=== PATIENT | female | born 1950 | race Asian ===

== ENCOUNTER 2018-07-19 08:22 | Inpatient (IN) | payer OTHER, MEDICAID ==
[~2018-07-19] VITALS: Ht 157.5 cm; Wt 59.9 kg
[~2018-07-19 08:22] MED LIST: BUPIVACAINE /PF 0.75% 10 ML VIAL INJ ONE; LR 1,000 ML IV.SOLN IV ONE; MIDAZOLAM HCL 5 MG/5 ML VIAL IVP ONE; ONDANSETRON HCL 4 MG/2 ML VIAL IVP ONE; PROPOFOL 200MG/ 20ML VIAL (DIPRIVAN) IV ONE; SEVOFLURANE 15 MIN GAS INH ONE; ePHEDrine sulfate 50 MG/ML VIAL IVP ONE; fentaNYL CITRATE/PF 100 MCG/2 ML AMP IVP ONE
--- NOTE | 2018-07-19 08:22 | NUR ---
Patient to ER bed 8 to gown for evaluation. Side rails up. Report given to Patricia LEI.
--- NOTE | 2018-07-19 08:30 | NUR ---
Patient presented to ER with knee pain, arrived BLS. Patient A&O, afebrile, skin pink, peripheral pulses present, capillary refill less than 3 sec, tachyneic, respirations equal bilat, pain 9/10. Patient mandarin speaking only. EMT report patient had a fall at home. EKG done upon arrival, patient placed on welder journeyman.
[2018-07-19 08:31] VITALS: BP_SYST 101
--- NOTE | 2018-07-19 08:31 | NUR ---
ER Dr. Howard at bedside examining patient.
[2018-07-19] MEDS ORDERED: MORPHINE 4 MG/ML INJ. SYRINGE IM ONE ×2 (08:45→09:00)
--- NOTE | 2018-07-19 08:45 | NUR ---
Daughter of patient called to bedside. Daughter states the patient had an episode of dizziness and fell, denies head injury, denies KO.
--- NOTE | 2018-07-19 08:46 | NUR ---
Daughter of patient states patient had a stroke 2017, history of diabetes, ambulates with cane at home.
[2018-07-19 09:04] LABS: BASOPHILS # (AUTO) 0.1 K/uL (0.0-0.2); BASOPHILS % (AUTO) 0.8 % (0.0-2.0); EOSINOPHILS # (AUTO) 0.2 K/uL (0.0-0.4); EOSINOPHILS % (AUTO) 2.6 % (0.0-4.0); HEMATOCRIT 37.9 % (36-48); HEMOGLOBIN 12.6 g/dL (12.0-16.0); LYMPHOCYTES # (AUTO) 1.2 K/uL (1.0-5.5); LYMPHOCYTES % (AUTO) 19.1 % (20.5-51.5); MEAN CORPUSCULAR HEMOGLOBIN 29 pg (27-31); MEAN CORPUSCULAR HGB CONC 33 % (32-36); MEAN CORPUSCULAR VOLUME 88 fL (79.0-98.0); MONOCYTES # (AUTO) 0.5 K/uL (0.0-1.0); MONOCYTES % (AUTO) 7.4 % (1.7-9.3); NEUTROPHILS # (AUTO) 4.4 K/uL (1.8-7.7); NEUTROPHILS % (AUTO) 70.1 % (40.0-70.0); PLATELET COUNT (AUTO) 160 K/uL (130-430); RED CELL DISTRIBUTION WIDTH 13.2 % (9.0-15.0); WHITE BLOOD COUNT (AUTO) 6.3 K/uL (4.8-10.8)
[2018-07-19 09:07] LABS: CALCIUM 9.1 mg/dL (8.4-11.0); CREATININE 0.87 mg/dL (0.55-1.30); POTASSIUM 4.2 mmol/L (3.5-5.1)
[2018-07-19 09:11] LABS: PROTHROMBIN TIME 9.9 SECS (9.5-12.5)
[2018-07-19 09:13] LABS: TOTAL BILIRUBIN 0.8 mg/dL (0.0-1.0)
--- NOTE | 2018-07-19 09:15 | NUR ---
Patient to ER bed 8 from Radiology, daughter at bedside. Patient actively vomiting, provided emesis bag.
[2018-07-19] MEDS ORDERED: ONDANSETRON HCL 4 MG/2 ML VIAL IVP ONE (09:30)
[2018-07-19] MEDS ORDERED: MECL12.584 PO (10:09)
[2018-07-19] MEDS ORDERED: TRAM-350 PO (10:09)
[2018-07-19] MEDS ORDERED: PRAM0.253 PO (10:09)
[2018-07-19] MEDS ORDERED: RANI-362 PO (10:09)
[2018-07-19] MEDS ORDERED: LASI20 IVP (10:09)
[2018-07-19] MEDS ORDERED: LIP10 PO (10:09)
[2018-07-19] MEDS ORDERED: AMLO5TAB4 PO (10:09)
[2018-07-19] MEDS ORDERED: LYR50 PO (10:09)
--- NOTE | 2018-07-19 10:15 | NUR ---
Medication reconciliation completed with information provided by Daughter. no prior medication reconciliation on file.
[2018-07-19] MEDS ORDERED: MORPHINE 4 MG/ML INJ. SYRINGE IVP ONE (10:30)
--- NOTE | 2018-07-19 10:37 | NUR ---
ADMISSION NOTE Received patient from ER via crystal, received report from NENA LEI. Patient admitted with diagnosis of SYNCOPE WITH RIGHT FEMUR FRACTURE. Patient oriented to hospital routine, call light, toileting and safety-patient verbalized understanding.
--- NOTE | 2018-07-19 10:40 | NUR ---
Patient will be admitted to care of Dr. Downey. Admitted to Tele unit. Will go to room 121A. Belongings list completed. Summary report printed. Report given at bedside Luiz LEI. Transfer to via ACLS protocol. Licensed nurse present. IV present no signs or symptoms of infiltration.
--- NOTE | 2018-07-19 10:41 | NUR ---
CONSULTATION PAGED REASON FOR CONSULTATION:FEMUR FRACTURE WAS CONSULT CALLED?Y PERSON WHO WAS NOTIFIED:JERROD CONSULTING PHYSICIAN:YEMI GUAMAN (ANA VERONICA [employer] FARM MANAGER) BONDACTOR MACHINE OPERATOR SPECIALTY:ORTHO BONDACTOR MACHINE OPERATOR PHONE NUMBER:[phone] REQUESTING PHYSICIAN:TANNER BERUMEN
--- NOTE | 2018-07-19 10:47 | NUR ---
PAGED PAGED TANNER BERUMEN AT [phone] SPOKE WITH LFACO.
[2018-07-19 10:58] VITALS: BP_SYST 124
[2018-07-19] MEDS ORDERED: MORPHINE 2 MG/ML INJ. SYRINGE IVP PRN (11:00)
[2018-07-19] MEDS ORDERED: ONDANSETRON HCL 4 MG/2 ML VIAL IVP PRN (11:00)
[2018-07-19] MEDS ORDERED: LORazepam 2 MG/ML VIAL IVP PRN (11:00)
--- NOTE | 2018-07-19 11:03 | NUR ---
CONSULTATION PAGED REASON FOR CONSULTATION:SYNCOPE WAS CONSULT CALLED?Y PERSON WHO WAS NOTIFIED:PORTER CONSULTING PHYSICIAN:MEENAKSHI BARRON GYPSUM BLOCK SETTER SPECIALTY:CARDIO GYPSUM BLOCK SETTER PHONE NUMBER:[phone] REQUESTING PHYSICIAN:TANNER BERUMEN
--- NOTE | 2018-07-19 11:15 | NUR ---
TRANSFER TO [facility]: Received patient from ER, patient placed in [facility] bed 121A, connected to tele monitor, patient tolerated well with minimal discomfort. Received SBAR report and plan of care from ER nurse Gianna.
[2018-07-19 12:00] VITALS: BP_SYST 124
[2018-07-19] MEDS: D5/0.45 NS 1,000 ML IV SCH ×2 (12:15→20:41)
--- NOTE | 2018-07-19 13:00 | NUR ---
RN ROUNDS: Patient resting in bed, daughter is at bedside, denies pain, denies SOB. Breathing is even and unlabored, no signs of distress noted. 22GA Peripheral IV to RT AC is patent, flushed well, dressing is clean dry and intact, infusion pump connected and running. O2 NC is in place with O2 running at 2LPM. Pain to RT lower extremity is tolerable at this time. Sensation to RT lower extremity is intact, pulses palpable. Bed is locked and in lowest position, call light is within reach, will continue to monitor.
[2018-07-19] MEDS: MORPHINE 4 MG/ML INJ. SYRINGE IVP PRN ×2 (14:32→20:42)
--- NOTE | 2018-07-19 15:00 | NUR ---
RN ROUNDS: Patient resting in bed. Patient medicated for pain to RT lower extremity. Breathing is even and unlabored, no signs of distress noted. Call light is within reach, bed is locked in lowest position.
--- NOTE | 2018-07-19 15:29 | NUR ---
CLAY CATH: # 16 FR Clay catheter with 10 cc bulb inserted with use of sterile technique. Bulb inflated with 10 cc sterile water. Immediate return of 200 cc dean urine noted. Bedside drainage bag placed below level of bladder. Pt tolerated procedure well with minimal discomfort.
[2018-07-19 16:33] VITALS: BP_SYST 127
--- NOTE | 2018-07-19 17:00 | NUR ---
RN ROUNDS: Patient remains alert and oriented, verbal and appropriately responsive. Patient speaks Mandarin only, daughter is at bedside to help translate and comfort patient. Patient is resting comfortably at this time, PRN pain med given earlier and patient verbalizes that it is helping keep pain manageable. Peripheral 22GA IV to RT AC is patent, flushed well, dressing is clean dry and intact with infusion pump running IVF. Riggs is intact, secured and freely flowing to gravity with no kinks in line, dean color urine noted. Patient is showing no signs of distress, call light is within reach, bed is locked in lowest position, will continue to monitor.
[2018-07-19 18:50] LABS: BILIRUBIN,URINE NEGATIVE (NEGATIVE); BLOOD, URINE 2+ (NEGATIVE); CLARITY/URINE CLEAR (CLEAR); COLOR,URINE AMBER (YELLOW); GLUCOSE,URINE TRACE (NEGATIVE); KETONES,URINE NEGATIVE (NEGATIVE); LEUKOCYTE ESTERASE ,URINE NEGATIVE (NEGATIVE); NITRITE, URINE NEGATIVE (NEGATIVE); PROTEIN URINE 1+ (NEGATIVE); UROBILINOGEN,URINE 0.2 (0.2-1.0)
[2018-07-19 18:57] LABS: BACTERIA,URINE FEW /HPF (None Seen); HYALINE CASTS, URINE 0-10 /LPF (None Seen); MUCUS,URINE None Seen /LPF (None Seen); RBC,URINE 0-3 /HPF (0-3); WBC,URINE 0-3 /HPF (0-3)
--- NOTE | 2018-07-19 19:10 | NUR ---
CLOSING NOTE: Patient remains AAOx4, continues to answer questions appropriately. No signs of distress noted, breathing is even and unlabored. Patient denies pain, denies SOB. Daughter is at bedside. Call light is within reach, bed is locked in lowest position, will continue to monitor until endorsed to mine shifter RN
--- NOTE | 2018-07-19 19:15 | NUR ---
OPENING NOTES Bedside report received from dayshift nurse. Patient received lying in bed, awake and alert. No s/s of acute distress noted. Breathing is even and unlabored. Nasal canula attached, on 2L of oxygen. HOB slightly raised. Patient's daughter is at bedside, assisting with translation. IV site patent, IVF infusing well, no signs of infiltration or infection noted. Riggs attached, secured, and draining by gravity. Three side rails up. Bed alarm on. Bed is locked and at lowest position. Call light with patient. Will continue to monitor.
--- NOTE | 2018-07-19 19:32 | NUR ---
ENDORSEMENT: Gave bedside SBAR report and endorsed plan of care to night DO Pereira
[2018-07-19 20:00] VITALS: BP_SYST 138
--- NOTE | 2018-07-19 20:42 | NUR ---
PAIN Patient complained of pain. PRN medication to be administered. Will continue to monitor and reassess.
--- NOTE | 2018-07-19 22:30 | NUR ---
ROUNDS Patient in bed sleeping at this time. No s/s of acute distress noted. Breathing even and unlabored. IVF infusing well. Call light with patient. Bed alarm on. Will continue to monitor.
--- NOTE | 2018-07-20 00:30 | NUR ---
ROUNDS Patient asleep at this time. No signs of discomfort noted. Chest rise and fall even bilaterally. IVF infusing well. Call light with patient. Bed alarm on. Will continue to monitor.
[2018-07-20 00:49] VITALS: BP_SYST 124
--- NOTE | 2018-07-20 03:00 | NUR ---
ROUNDS Patient sleeping comfortably at this time. No s/s of acute distress noted. Breathing even and unlabored. IVF infusing well. Call light with patient. Bed alarm on. Will continue to monitor.
--- NOTE | 2018-07-20 05:00 | NUR ---
ROUNDS/PERICARE Patient in bed receiving amber care from HOUSEHOLD APPLIANCES SERVICE TECHNICIAN. Patient tolerating activity well. No signs of discomfort noted. Chest rise and fall even bilaterally. Call light with patient. Bed alarm on. Will continue to monitor.
[2018-07-20] MEDS: D5/0.45 NS 1,000 ML IV SCH ×2 (05:08→17:55)
--- NOTE | 2018-07-20 06:40 | NUR ---
CLOSING NOTES Patient in bed, eyes closed, appears to be asleep at this time. No s/s of acute distress noted. Breathing even and unlabored. Nasal canula attached properly, on 2L of oxygen. HOB raised. IVF infusing well, IV site patent, no signs of infiltration or infection noted. Riggs attached, secured, and draining by gravity. All needs met throughout shift. Fall and safety precautions maintained throughout shift. Will continue to monitor until patient care is endorsed to oncoming dayshift nurse.
[2018-07-20 07:00] VITALS: BP_SYST 136
[2018-07-20 07:04] LABS: CALCIUM 8.1 mg/dL (8.4-11.0); CREATININE 0.89 mg/dL (0.55-1.30); POTASSIUM 4.5 mmol/L (3.5-5.1)
[2018-07-20 07:09] LABS: BASOPHILS % (AUTO) 0.1 % (0.0-2.0); EOSINOPHILS # (AUTO) 0.2 K/uL (0.0-0.4); EOSINOPHILS % (AUTO) 2.9 % (0.0-4.0); HEMATOCRIT 27.7 % (36-48); HEMOGLOBIN 9.3 g/dL (12.0-16.0); LYMPHOCYTES # (AUTO) 0.6 K/uL (1.0-5.5); LYMPHOCYTES % (AUTO) 7.4 % (20.5-51.5); MEAN CORPUSCULAR HEMOGLOBIN 30 pg (27-31); MEAN CORPUSCULAR HGB CONC 34 % (32-36); MEAN CORPUSCULAR VOLUME 88 fL (79.0-98.0); MONOCYTES # (AUTO) 0.5 K/uL (0.0-1.0); MONOCYTES % (AUTO) 6.4 % (1.7-9.3); NEUTROPHILS % (AUTO) 83.2 % (40.0-70.0); PLATELET COUNT (AUTO) 108 K/uL (130-430); RED BLOOD CELL COUNT(AUTO) 3.14 MIL/uL (4.2-6.2); RED CELL DISTRIBUTION WIDTH 13.3 % (9.0-15.0)
[2018-07-20 07:12] LABS: PHOSPHORUS 3.2 mg/dL (2.7-4.5)
--- NOTE | 2018-07-20 07:25 | NUR ---
TO OR Pt left floor via bed to OR in no distress. Pt's daughter Pratima at bedside.
[2018-07-20 07:32] LABS: WHITE BLOOD COUNT (AUTO) 8.4 K/uL (4.8-10.8)
[2018-07-20] MEDS ORDERED: POLYMYXIN 500,000/BACIT.10,000 UNITS in NS IRR 1 L IR ONE (07:39)
--- NOTE | 2018-07-20 09:01 | NUR ---
Nutrition Update Chinmay Scale 15 noted. Pt admitted for syncope, R femur fracture. Diet: NPO BMI: 24.1 kg/m2 RD to follow per nutrition care standards.
--- NOTE | 2018-07-20 09:41 | NUR ---
CONSULT PULMONOLOGY PNEUMONIA/ PULMONARY NODULE DR MORATAYA [phone] [address] MIC[address] TECH[address] MICHELLE IS ROUNDING AND WAS INFORMED OF CONSULT
--- NOTE | 2018-07-20 10:12 | NUR ---
CONSULT ID PNEUMONIA DR BROTHERS [phone] S/W ANAIS GOLDSTEIN
[2018-07-20] MEDS ORDERED: LR 1,000 ML IV SCH (10:33)
[2018-07-20] MEDS ORDERED: METOCLOPRAMIDE HCL 10 MG/2 ML VIAL IVP PRN (10:45)
[2018-07-20] MEDS ORDERED: MORPHINE 4 MG/ML INJ. SYRINGE IVP PRN ×3 (10:45)
[2018-07-20] MEDS: CEFAZOLIN 1 GM IVPB PREMIX 50 ML IV SCH ×2 (11:00→17:45)
[2018-07-20] MEDS ORDERED: MEPERIDINE HCL/PF 100 MG/ML AMP IM PRN (11:00)
[2018-07-20] MEDS ORDERED: ONDANSETRON HCL 4 MG/2 ML VIAL IVP PRN (11:00)
[2018-07-20] MEDS ORDERED: PROMETHAZINE INJ.Non-Formulary 25 MG/ML AMP IVP PRN (11:00)
[2018-07-20] MEDS ORDERED: DIPHENHYDRAMINE HCL 25 MG CAPSULE PO PRN (11:00)
[2018-07-20] MEDS ORDERED: HYDROcodone/ACETAMIN 5-325 MG TAB (NORCO/ VICODIN) PO PRN (11:00)
[2018-07-20] MEDS ORDERED: SENNOSIDES 8.6 MG TABLET PO PRN (11:00)
[2018-07-20] MEDS ORDERED: MECLIZINE HCL 25 MG TABLET (ANITVERT) PO PRN (11:15)
[2018-07-20] MEDS ORDERED: MORPHINE 4 MG/ML INJ. SYRINGE ONE (11:28)
--- NOTE | 2018-07-20 12:10 | NUR ---
Post operative notes From PACU after ORIF of right femur under spinal anesthesia with mac sedation, on endorsement patient awake but drowsy , vitals signed monitored , dressing x2 right leg dry/intact kept with cold pack, mild pain/sensation BLE extremities, feeling weak , warm to touch, safety/fall precaution initiated, will monitor.
[2018-07-20 12:15] VITALS: BP_SYST 128
[2018-07-20] MEDS ORDERED: AZITHROMYCIN 500 MG in NS 250 ML IV SCH (12:30)
[2018-07-20] MEDS ORDERED: CEFAZOLIN 1 GM IVPB PREMIX 50 ML IV ONE (12:45)
[2018-07-20] MEDS: cefTRIAXone 1 GM in D5W 50 ML IV SCH (13:23)
[2018-07-20] MEDS: INSULIN REGULAR, HUMAN 100 UNITS/ML, 10 ML VIAL (novoLIN R) SUBCUT PRN ×3 (13:27→21:11)
--- NOTE | 2018-07-20 14:40 | NUR ---
ROUNDS Pt resting quietly in bed with no s/s resp distress, no c/o pain or discomfort. Pt drank small amount of warm water. All precautions remain in place. Call light within reach.
--- NOTE | 2018-07-20 16:23 | NUR ---
ROUNDS Pt resting quietly in bed with no s/s resp distress, no c/o pain or discomfort. Fresh ice placed to pt's right leg incision sites. All precautions remain in place. Call light within reach.
[2018-07-20] MEDS: PREGABALIN 25 MG CAPSULE (LYRICA) PO SCH ×2 (16:39→21:05)
[2018-07-20 16:44] VITALS: BP_SYST 112
--- NOTE | 2018-07-20 18:16 | NUR ---
CLOSING NOTE Pt resting quietly in bed with no s/s resp distress, no c/o pain or discomfort. Taking only sips of warm water at this time. IVF infusing well to LFA at ordered rate with no s/s infiltration to site. HOB elevated for aspiration precautions. Needs met, call light within reach.
--- NOTE | 2018-07-20 19:15 | NUR ---
Opening Note Received bedside report with patient laying supine. Alert and able to verbalize her needs. Patient is Mandarin speaking only. Patient is placed on bedrest with bed alarm active. S/P fall and S/P ORIF of the right leg. Lateral upper thigh dressing CDI and lateral lower leg dressing CDI. Patient does not have any pain at this time or respiratory distress. On 2L NC and tolerating well. Oriented the patient to the room and use of the call light. Will monitor patient for any change in condition. Safety precautions being observed and call light within reach.
--- NOTE | 2018-07-20 19:16 | NUR ---
Educated incentive spirometer with patient and daughter (Pratima) at bedside. Instructed on use and outcome. Patient did one on one teachback with IS. No questions from patient of daughter.
[2018-07-20] MEDS: PRAMIPEXOLE DI-HCL 0.25 MG TABLET PO SCH (21:04)
[2018-07-20] MEDS: FERROUS SULFATE 325 MG TABLET.DR PO SCH (21:04)
[2018-07-20] MEDS: DOCUSATE SODIUM 100 MG CAPSULE PO SCH (21:04)
[2018-07-20] MEDS: FAMOTIDINE 20 MG TABLET PO SCH (21:04)
--- NOTE | 2018-07-20 22:05 | NUR ---
Daughter at bedside. Patient taken PO meds and tolerated well. No pain or respiratory distress at this time. Cont on 2L NC. Call light within reach. Bed locked in low position and bed alarm is active. Riggs catheter draining by gravity.
[2018-07-21] MEDS: MORPHINE 4 MG/ML INJ. SYRINGE IVP PRN (00:12)
[2018-07-21 00:24] VITALS: BP_SYST 111
--- NOTE | 2018-07-21 00:30 | NUR ---
Repositioned patient, and leg. Ask if patient had pain, and medicated with morphine 4mg for pain of 7/10. Patient stated she was warm. Removed a few layers of blankets.
--- NOTE | 2018-07-21 02:10 | NUR ---
Patient in bed resting. No apparent sign of pain or respiratory distress. Will cont to monitor.
[2018-07-21] MEDS: D5/0.45 NS 1,000 ML IV SCH (03:05)
--- NOTE | 2018-07-21 03:29 | NUR ---
200ml Output from Riggs Catheter. Kacey color, clear.
--- NOTE | 2018-07-21 04:23 | NUR ---
Patient resting in bed with no change in current condition. Will cont to monitor. No pain or sob noted.
[2018-07-21] MEDS: INSULIN REGULAR, HUMAN 100 UNITS/ML, 10 ML VIAL (novoLIN R) SUBCUT PRN ×4 (06:09→21:25)
[2018-07-21 06:10] LABS: BASOPHILS % (AUTO) 0.1 % (0.0-2.0); EOSINOPHILS % (AUTO) 0.3 % (0.0-4.0); LYMPHOCYTES # (AUTO) 0.7 K/uL (1.0-5.5); LYMPHOCYTES % (AUTO) 8.3 % (20.5-51.5); MEAN CORPUSCULAR HEMOGLOBIN 30 pg (27-31); MEAN CORPUSCULAR HGB CONC 34 % (32-36); MEAN CORPUSCULAR VOLUME 88 fL (79.0-98.0); MONOCYTES # (AUTO) 0.8 K/uL (0.0-1.0); MONOCYTES % (AUTO) 9.4 % (1.7-9.3); NEUTROPHILS # (AUTO) 6.6 K/uL (1.8-7.7); PLATELET COUNT (AUTO) 92 K/uL (130-430); RED CELL DISTRIBUTION WIDTH 12.9 % (9.0-15.0)
[2018-07-21 06:34] LABS: ALBUMIN 1.6 g/dL (3.4-4.8); C-REACTIVE PROTEIN QUANT 8.4 mg/dL (0-0.5); CALCIUM 7.3 mg/dL (8.4-11.0); CREATININE 0.57 mg/dL (0.55-1.30); POTASSIUM 4.2 mmol/L (3.5-5.1); TOTAL BILIRUBIN 0.7 mg/dL (0.0-1.0)
--- NOTE | 2018-07-21 06:58 | NUR ---
Closing Notes Patient in bed resting. Compression stockings applied. Bed alarm is active, low and locked. no complaints of pain or respiratory distress. All needs have been met and will endorse care to oncoming shift.
--- NOTE | 2018-07-21 07:55 | NUR ---
INITIAL NOTE RECEIVED PT IN BED, NO S/S OF DISTRESS OR SOB NOTED, PT HAS NO C/O PAIN AT THIS TIME, PT IN STABLE CONDITION, PT AAOX3, VERBAL BUT SPEAKS MANDARIN, DAUGHTER AT BEDSIDE TO TRANSLATE. PT ON OXYGEN 2 LITERS VIA NASAL CANNULA, SATURATION 100%. PT HAS A DRESSING ON RIGHT HIP, NOTED OLD BLOOD, PT HAS TWO IV CATHETER'S PATENT, FLUSH AND NO SIGNS OF INFECTION OR INFILTRATION NOTED. PT HAS A F/C DRAINING VIA GRAVITY. EDUCATED PT ON USE OF INCENTIVE SPIROMETER, PT TO USE 10 TIMES AN HOUR WHILE AWAKE, PT VERBALIZED UNDERSTANDING, PT AT 500ML, WITH HELP OF DAUGHTER. PT ABLE TO MOVE TOES ON RIGHT FOOT, SENSATION PRESENT, CAPILLARY REFILL LESS THAN 3 SECONDS, PULSE PALPABLE, NO PARALYSIS OR TINGLING PER PT. PT HAS A SPLINT ON RIGHT ARM, PULSE PALPABLE, SENSATION PRESENT, CAPILLARY REFILL LESS THAN 3 SECONDS, NO PARALYSIS OR TINGLING PT PER, ABLE TO WIGGLE FINGERS. PT HAS BILATERAL SCD'S IN PLACE. BED AT LOWEST POSITION, CALL LIGHT WITHIN REACH, WILL CONTINUE TO MONITOR PT FOR ANY CHANGES, FALL AND SAFETY PRECAUTIONS IN PLACE.
--- NOTE | 2018-07-21 08:05 | NUR ---
PAGED PAGED TANNER BERUMEN AT [phone] SPOKE WITH JOLIE.
[2018-07-21 08:10] LABS: RED BLOOD CELL COUNT(AUTO) 1.94 MIL/uL (4.2-6.2)
[2018-07-21 08:11] LABS: HEMATOCRIT 17.1 % (36-48); HEMOGLOBIN 5.8 g/dL (12.0-16.0)
[2018-07-21 08:30] VITALS: BP_SYST 131
--- NOTE | 2018-07-21 08:42 | NUR ---
PAGED PAGED ANA VERONICA AT [phone] SPOKE WITH ELVI.
[2018-07-21] MEDS: DOCUSATE SODIUM 100 MG CAPSULE PO SCH ×2 (08:44→21:16)
[2018-07-21] MEDS: PREGABALIN 25 MG CAPSULE (LYRICA) PO SCH ×4 (08:44→21:17)
[2018-07-21] MEDS: FERROUS SULFATE 325 MG TABLET.DR PO SCH ×2 (08:44→21:16)
[2018-07-21] MEDS: amLODIPine BESYLATE 5 MG TABLET PO SCH (08:45)
[2018-07-21] MEDS: FUROSEMIDE 20 MG/2 ML VIAL IVP SCH (08:45)
[2018-07-21] MEDS ORDERED: ENOXAPARIN SODIUM 40 MG/0.4 ML SYRINGE SUBCUT SCH (09:00)
[2018-07-21] MEDS ORDERED: ATORVASTATIN 10 MG TABLET PO SCH (09:00)
[2018-07-21] MEDS ORDERED: NACL 0.9% 1,000 ML IV SCH (09:00)
--- NOTE | 2018-07-21 09:11 | NUR ---
PAGED PAGED ANA VERONICA AT [phone] SPOKE WITH TRUMAN.
--- NOTE | 2018-07-21 09:25 | NUR ---
PAGED PAGED TANNER BERUMEN AT [phone] SPOKE WITH FREDIS.
--- NOTE | 2018-07-21 09:30 | NUR ---
ROUNDS DR MIGUEL ANGEL MEDINA, CLARIFIED WITH ABOUT ORDERING 2 UNITS OF PRBC'S. PER MD SHE GAVE AN ORDER TO TRANSFUSE 2 UNITS TODAY AND CANCEL THE ORDER FOR AUTOLOGOUS BLOOD.
--- NOTE | 2018-07-21 09:33 | NUR ---
2ND PAGE OUT TO PAGED ANA VERONICA AT [phone] SPOKE WITH TRUMAN.
[2018-07-21 09:44] LABS: ERYTHROCYTE SEDIMENTATION RATE 36 MM/HR (0-20)
--- NOTE | 2018-07-21 09:45 | NUR ---
BT INITIATION: Consent signed per daughter agreeing to administration of blood. Blood has been type and crossmatched. Blood sent from blood bank. Information on unit of blood checked against patient wristband at bedside by two nurses. All information matches. Patient or responsible republican informed of potential complications associated with blood transfusion. Informed of possible transfusion reaction symptoms. Aware of need to notify nurse at once of itching, shortness of breath, flushing, feeling of impending doom, or other symptoms not previously present. Vital signs taken within 5 minutes prior to initiation of transfusion. RN will remain with patient for first 15 minutes of transfusion at which time vital signs will be re-assessed. VSS, 98.6, 79, 18, 114/47, saturation 100% 2 liter via nasal cannula.
--- NOTE | 2018-07-21 09:46 | NUR ---
MD CALL DR ASHLEIGH PORTILLO, MADE AWARE THAT PATIENT'S DRESSING THE DRESSING ON HER RIGHT HIP BLEEDING AT THE TOP, NOTED TO BE SLIGHT OOZING AND WET WHEN TOUCHED, NOTED BRIGHT RED BLOOD, NOTED THAT THE VINCE WAS WET WITH OLD BLOOD, PER MD TO REINFORCE DRESSING FOR NOW AND HE WILL COME AND SEE THE PT.
--- NOTE | 2018-07-21 10:00 | NUR ---
FIFTEEN MINUTES AFTER BLOOD TRANSFUSION STARTED PT IN STABLE CONDITION, NO S/S OF DISTRESS OR SOB NOTED, PT HAS NO C/O PAIN AT THIS TIME, PT RESTING COMFORTABLY, VSS, 122/51, 18, 78, 98.6, SATURATION OF 100% ON 2 LITERS VIA NASAL CANNULA.
--- NOTE | 2018-07-21 10:04 | NUR ---
ROUNDS PT IN BED, NO S/S OF DISTRESS OR SOB NOTED, PT HAS NO C/O PAIN AT THIS TIME, PT IN STABLE CONDITION, PT RESTING COMFORTABLY, WILL CONTINUE TO MONITOR PT FOR ANY CHANGES.
[2018-07-21 10:16] LABS: NEUTROPHILS % (AUTO) 81.9 % (40.0-70.0)
[2018-07-21] MEDS: NACL 0.9% 1,000 ML IV SCH (10:18)
[2018-07-21] MEDS: HYDROcodone/ACETAMIN 7.5-325 MG TAB PO PRN (10:47)
--- NOTE | 2018-07-21 11:30 | NUR ---
MD ROUNDS DR ASHLEIGH MEDINA, AWARE OF PATIENT'S CONDITION, MD CAME TO SEE PT DUE TO OOZING FROM RIGHT HIP, PER MD HE STATED IT WAS FINE AND TO REINFORCE NEEDED.
--- NOTE | 2018-07-21 12:07 | NUR ---
ROUNDS PT IN BED, NO S/S OF DISTRESS OR SOB NOTED, PT HAS NO C/O PAIN AT THIS TIME, PT IN STABLE CONDITION. PT RESTING COMFORTABLY, WILL CONTINUE TO MONITOR PT FOR ANY CHANGES.
--- NOTE | 2018-07-21 12:45 | NUR ---
BLOOD TRANSFUSION ENDED NO REACTION NOTED, PT IN STABLE CONDITION, NO S/S OF DISTRESS OR SOB NOTED, PT HAS NO C/O PAIN AT THIS TIME, PT IN STABLE CONDITION, VSS, 99% 1 LITER VIA NASAL CANNULA, 72, 98.6, 126/56.
[2018-07-21 12:49] VITALS: BP_SYST 125
[2018-07-21] MEDS: cefTRIAXone 1 GM in D5W 50 ML IV SCH (12:49)
--- NOTE | 2018-07-21 13:42 | NUR ---
PHYSICAL THERAPY EVALUATION WILL BE PERFORMED TOMORROW DUE TO THE PATIENT HAVING LOW HGB AND HAVING TRANSFUSIONS. PLAN: ATTEMPT TOMORROW.
--- NOTE | 2018-07-21 15:06 | NUR ---
CHRISTOPHER PLANNING Received call from dtr Pratima that spoke w PCP & wants pt to go to [facility]. States will go look @ facility today & if does not like it will let us know. Updated christopher Huffman planner/scheduler.
[2018-07-21 16:44] VITALS: BP_SYST 131
--- NOTE | 2018-07-21 17:30 | NUR ---
SPLINT MISSING SPLINT FOR RIGHT ARM IS MISSING, UNABLE TO FIND IT, PRESUMED THAT DAUGHTER TOOK IT HOME, WILL ASK HER WHEN SHE COMES BACK, CHARGE NURSE AWARE.
--- NOTE | 2018-07-21 17:40 | NUR ---
BT INITIATION: Consent signed per daughter agreeing to administration of blood. Blood has been type and crossmatched. Blood sent from blood bank. Information on unit of blood checked against patient wristband at bedside by two nurses. All information matches. Patient or responsible republican informed of potential complications associated with blood transfusion. Informed of possible transfusion reaction symptoms. Aware of need to notify nurse at once of itching, shortness of breath, flushing, feeling of impending doom, or other symptoms not previously present. Vital signs taken within 5 minutes prior to initiation of transfusion. RN will remain with patient for first 15 minutes of transfusion at which time vital signs will be re-assessed. VSS, 98.6, 77, 18, 116/54, saturation 100% 1 liter via nasal cannula.
--- NOTE | 2018-07-21 17:55 | NUR ---
FIFTEEN MINUTES AFTER BLOOD TRANSFUSION STARTED PT IN STABLE CONDITION, NO S/S OF DISTRESS OR SOB NOTED, PT HAS NO C/O PAIN AT THIS TIME, PT RESTING COMFORTABLY, VSS, 110/56, 18, 78, 98.6, SATURATION OF 100% ON 1 LITERS VIA NASAL CANNULA.
--- NOTE | 2018-07-21 18:18 | NUR ---
CLOSING NOTE PT IN BED, NO S/S OF DISTRESS OR SOB NOTED, PT HAS NO C/O PAIN AT THIS TIME, PT IN STABLE CONDITION, PT AAOX3, VERBAL BUT SPEAKS MANDARIN. PT ON OXYGEN 1 LITERS VIA NASAL CANNULA, SATURATION 100%. PT HAS A DRESSING ON RIGHT HIP, NOTED OLD BLOOD ON IT, NO MORE OOZING NOTED, PT HAS TWO IV CATHETER'S PATENT, FLUSH AND NO SIGNS OF INFECTION OR INFILTRATION NOTED. RUNNING BLOOD ORDERED. PT HAS A F/C DRAINING VIA GRAVITY. EDUCATED PT ON USE OF INCENTIVE SPIROMETER, PT AT 500ML. PT ABLE TO MOVE TOES ON RIGHT FOOT, SENSATION PRESENT, CAPILLARY REFILL LESS THAN 3 SECONDS, PULSE PALPABLE, NO PARALYSIS OR TINGLING PER PT. PT NO LONGER HAS A SPLINT ON RIGHT ARM, PULSE PALPABLE, SENSATION PRESENT, CAPILLARY REFILL LESS THAN 3 SECONDS, NO PARALYSIS OR TINGLING PT PER, ABLE TO WIGGLE FINGERS. PT HAS BILATERAL SCD'S IN PLACE. BED AT LOWEST POSITION, CALL LIGHT WITHIN REACH, WILL ENDORSE CARE OF PT TO INCOMING NURSE, FALL AND SAFETY PRECAUTIONS IN PLACE.
--- NOTE | 2018-07-21 19:30 | NUR ---
Pt was received lying in bed fully awake, alert and oriented x 4. Pt is Mandarin speaking, but speaks and understands some [place]. PRBC transfusion is in progress in left hand and no transfusion reaction noted. IV sites in left hand and RAC are without any sign of infiltration. Rt hip dressing noted with old blood stain. neurovascular checks to RUE and RLE are WNL. Pt is able to wiggle her fingers and toes. Pt was instructed to use IS 10x Q 1hr WA and pt verbalized understanding. Riggs cath is patent with yellowish urine. Skin is warm and dry to touch. No signs or symptoms of hypoglycemia or hyperglycemia noted. Call light is with pt and bed alrm is on. Pt was instructed to call for assistance as needed and pt verbalized understanding.
[2018-07-21 20:00] VITALS: BP_SYST 121
--- NOTE | 2018-07-21 20:15 | NUR ---
PRBC transfusion completed and no transfusion reaction noted. VSS. IVF of NS resumed at 70ml/hr.
[2018-07-21] MEDS: PRAMIPEXOLE DI-HCL 0.25 MG TABLET PO SCH (21:16)
[2018-07-21] MEDS: FAMOTIDINE 20 MG TABLET PO SCH (21:16)
[2018-07-21] MEDS: metroNIDAZOLE 500 mg/NS 100 ML IV SCH (21:16)
--- NOTE | 2018-07-21 21:25 | NUR ---
Accucheck 258 and 6 units Regular Insulin given SQ. Skin remains warm and dry to touch. Pt was offered HS snacks, but pt declined.
--- NOTE | 2018-07-22 | NUR ---
Pt is resting without any distress noted. Neurovascular checks to RUE and RLE are WNL. Rt hip dressing intact with old blood stain. IVF is infusing well in left hand. Call light is with pt and bed alarm is on.
[2018-07-22] MEDS: NACL 0.9% 1,000 ML IV SCH ×2 (00:33→08:27)
[2018-07-22 00:35] VITALS: BP_SYST 133
[2018-07-22] MEDS: MORPHINE 4 MG/ML INJ. SYRINGE IVP PRN (00:41)
--- NOTE | 2018-07-22 00:41 | NUR ---
Morphine 4mg was given IV for c/o right hip pain. Fall and safety precautions are in place.
[2018-07-22 01:22] LABS: BASOPHILS % (AUTO) 0.4 % (0.0-2.0); EOSINOPHILS % (AUTO) 0.4 % (0.0-4.0); HEMATOCRIT 24.3 % (36-48); HEMOGLOBIN 8.5 g/dL (12.0-16.0); LYMPHOCYTES # (AUTO) 0.5 K/uL (1.0-5.5); LYMPHOCYTES % (AUTO) 5.5 % (20.5-51.5); MEAN CORPUSCULAR HEMOGLOBIN 31 pg (27-31); MEAN CORPUSCULAR HGB CONC 35 % (32-36); MEAN CORPUSCULAR VOLUME 88 fL (79.0-98.0); MONOCYTES % (AUTO) 11.8 % (1.7-9.3); NEUTROPHILS # (AUTO) 7.3 K/uL (1.8-7.7); NEUTROPHILS % (AUTO) 81.9 % (40.0-70.0); PLATELET COUNT (AUTO) 82 K/uL (130-430); RED BLOOD CELL COUNT(AUTO) 2.77 MIL/uL (4.2-6.2); RED CELL DISTRIBUTION WIDTH 13.3 % (9.0-15.0); WHITE BLOOD COUNT (AUTO) 8.9 K/uL (4.8-10.8)
--- NOTE | 2018-07-22 02:00 | NUR ---
Pt is sleeping comfortably in bed. Dayron;l light is with pt and bed alarm is on.
--- NOTE | 2018-07-22 04:00 | NUR ---
Neurovascular checks to RUE and RLE are WNL. Rt hip dressing intact with old blood stain. IVF is infusing well in left hand. Call light is with pt and bed alarm is on.
[2018-07-22] MEDS: INSULIN REGULAR, HUMAN 100 UNITS/ML, 10 ML VIAL (novoLIN R) SUBCUT PRN ×4 (06:11→21:43)
--- NOTE | 2018-07-22 06:30 | NUR ---
Pt is awake and resting quietly in bed. All pt's needs were attended to. Accucheck 189 this AM and 2 units Regular Insulin given SQ. Skin remains warm and dry to touch. Rt hip dressing is intact. No c/o pain or discomfort at this time. IVF is infusing well in . Will endorse to day shift nurse.
[2018-07-22 07:17] LABS: BASOPHILS % (AUTO) 0.2 % (0.0-2.0); EOSINOPHILS % (AUTO) 0.1 % (0.0-4.0); HEMATOCRIT 25.2 % (36-48); HEMOGLOBIN 8.6 g/dL (12.0-16.0); LYMPHOCYTES # (AUTO) 0.5 K/uL (1.0-5.5); LYMPHOCYTES % (AUTO) 5.5 % (20.5-51.5); MEAN CORPUSCULAR HEMOGLOBIN 30 pg (27-31); MEAN CORPUSCULAR HGB CONC 34 % (32-36); MEAN CORPUSCULAR VOLUME 88 fL (79.0-98.0); MONOCYTES # (AUTO) 0.8 K/uL (0.0-1.0); MONOCYTES % (AUTO) 8.7 % (1.7-9.3); NEUTROPHILS # (AUTO) 7.7 K/uL (1.8-7.7); NEUTROPHILS % (AUTO) 85.5 % (40.0-70.0); PLATELET COUNT (AUTO) 90 K/uL (130-430); RED BLOOD CELL COUNT(AUTO) 2.87 MIL/uL (4.2-6.2); RED CELL DISTRIBUTION WIDTH 13.3 % (9.0-15.0)
[2018-07-22 07:32] VITALS: BP_SYST 135
[2018-07-22 07:39] LABS: ALBUMIN 1.7 g/dL (3.4-4.8); CALCIUM 7.7 mg/dL (8.4-11.0); CREATININE 0.66 mg/dL (0.55-1.30); POTASSIUM 3.7 mmol/L (3.5-5.1); TOTAL BILIRUBIN 1.4 mg/dL (0.0-1.0)
--- NOTE | 2018-07-22 07:55 | NUR ---
INITIAL NOTE RECEIVED PT IN BED, NO S/S OF DISTRESS OR SOB NOTED, PT HAS NO C/O PAIN AT THIS TIME, PT IN STABLE CONDITION, PT AAOX3, VERBAL BUT SPEAKS MANDARIN, DAUGHTER AT BEDSIDE TO TRANSLATE. PT ON OXYGEN 1 LITERS VIA NASAL CANNULA, SATURATION 100%. PT HAS A DRESSING ON RIGHT HIP, NOTED OLD BLOOD, PT HAS TWO IV CATHETER'S PATENT, FLUSH AND NO SIGNS OF INFECTION OR INFILTRATION NOTED. PT HAS A F/C DRAINING VIA GRAVITY. EDUCATED PT ON USE OF INCENTIVE SPIROMETER, PT TO USE 10 TIMES AN HOUR WHILE AWAKE, PT VERBALIZED UNDERSTANDING, PT AT 500ML, WITH HELP OF DAUGHTER. PT ABLE TO MOVE TOES ON RIGHT FOOT, SENSATION PRESENT, CAPILLARY REFILL LESS THAN 3 SECONDS, PULSE PALPABLE, NO PARALYSIS OR TINGLING PER PT. PT DOES NOT HAVE A SPLINT ON RIGHT ARM, IT IS MISSING, PULSE PALPABLE, SENSATION PRESENT, CAPILLARY REFILL LESS THAN 3 SECONDS, NO PARALYSIS OR TINGLING PT PER, ABLE TO WIGGLE FINGERS. PT HAS BILATERAL SCD'S IN PLACE. BED AT LOWEST POSITION, CALL LIGHT WITHIN REACH, WILL CONTINUE TO MONITOR PT FOR ANY CHANGES, FALL AND SAFETY PRECAUTIONS IN PLACE.
[2018-07-22] MEDS: PREGABALIN 25 MG CAPSULE (LYRICA) PO SCH ×3 (08:13→21:42)
[2018-07-22] MEDS: DOCUSATE SODIUM 100 MG CAPSULE PO SCH ×2 (08:13→21:41)
[2018-07-22] MEDS: FERROUS SULFATE 325 MG TABLET.DR PO SCH ×2 (08:13→21:41)
[2018-07-22] MEDS: amLODIPine BESYLATE 5 MG TABLET PO SCH (08:14)
[2018-07-22] MEDS: metroNIDAZOLE 500 mg/NS 100 ML IV SCH ×2 (08:15→21:41)
[2018-07-22] MEDS: FUROSEMIDE 20 MG/2 ML VIAL IVP SCH (08:15)
--- NOTE | 2018-07-22 08:25 | NUR ---
MD ROUNDS DR ASHLEIGH MEIDNA, AWARE OF PATIENT'S CONDITION. MD CHANGED RIGHT HIP DRESSING AND NOTED OOZING, PER MD THIS IS NORMAL AND TO CONTINUE TO MONITOR AND REINFORCE IF NEEDED.
[2018-07-22] MEDS: cefTRIAXone 1 GM in D5W 50 ML IV SCH (11:44)
[2018-07-22 12:30] VITALS: BP_SYST 132
--- NOTE | 2018-07-22 14:45 | NUR ---
MD ROUNDS DR DESHAUN MEDINA, MADE AWARE OF PATIENT'S CONDITION. MADE AWARE THAT DR SOTELO WANTS PT ON DVT PROPHYLAXIS EITHER ASPIRIN 325 PO OR LOVENOX 20 MG DAILY. ASKED MD IF F/C NEED TO STAY IN PLACE AND PER MD TO HAVE F/C IN PLACE UNTIL TOMORROW MORNING AFTER LAB RESULTS HAVE CAME IN TO SEE IF SHE WILL NEED MORE BLOOD TRANSFUSED.
--- NOTE | 2018-07-22 15:03 | NUR ---
DC PLANNING Around noon spoke w isai Andujar @ bedside, dtr has discussed w [facility] P/[facility] already & wants dc to SNF. Per Pratima she toured [facility], [facility] & others on SNF list total of 5 SNF's. States that the only one she liked is [facility] & want pt to go to [facility]. Dtr aware that plan for dc tomorrow. Updated nelson Huffman personal financial planner. Later in afternoon informed Dr Downey dtr prefers [facility], states ok plan for dc tomorrow.
--- NOTE | 2018-07-22 15:10 | NUR ---
Discharge Planning: DCP faxed pt referral to [facility] (f [phone] p [phone]) pt accepted to [facility].
[2018-07-22] MEDS ORDERED: ASPIRIN 325 MG TABLET (ECOTRIN) PO ONE (15:15)
[2018-07-22 16:55] VITALS: BP_SYST 130
--- NOTE | 2018-07-22 18:27 | NUR ---
CLOSING NOTE PT IN BED, NO S/S OF DISTRESS OR SOB NOTED, PT HAS NO C/O PAIN AT THIS TIME, PT IN STABLE CONDITION, PT AAOX3, VERBAL BUT SPEAKS MANDARIN. PT ON ROOM AIR, SATURATION OF SATURATION 95%. PT HAS A DRESSING ON RIGHT HIP, CLEAN AND DRY, NO MORE OOZING NOTED, PT HAS IV CATHETER ON LEFT FOREARM, PATENT, REMOVED IV CATHETER ON RIGHT AC PER PT IT WAS BUGGING HER, NO ACTIVE BLEEDING, DRESSING IN PLACE. PT HAS A F/C DRAINING VIA GRAVITY. EDUCATED PT ON USE OF INCENTIVE SPIROMETER, PT AT 500ML. PT ABLE TO MOVE TOES ON RIGHT FOOT, SENSATION PRESENT, CAPILLARY REFILL LESS THAN 3 SECONDS, PULSE PALPABLE, NO PARALYSIS OR TINGLING PER PT. PT NO LONGER HAS A SPLINT ON RIGHT ARM, ASKED DAUGHTER ABOUT IT AND SHE IN UNAWARE OF WHERE IT IS, PULSE PALPABLE, SENSATION PRESENT, CAPILLARY REFILL LESS THAN 3 SECONDS, NO PARALYSIS OR TINGLING PT PER, ABLE TO WIGGLE FINGERS. PT HAS BILATERAL SCD'S IN PLACE. BED AT LOWEST POSITION, CALL LIGHT WITHIN REACH, WILL ENDORSE CARE OF PT TO INCOMING NURSE, FALL AND SAFETY PRECAUTIONS IN PLACE.
--- NOTE | 2018-07-22 19:32 | NUR ---
Pt was received lying in bed fully awake, alert and oriented x 4. Pt's daughter is visiting at the bedside. Saline lock in LH is without any signs of infiltration. RUE and RLE are WNL. Pt is able to wiggle her fingers and toes. Pt was instructed to use IS 10x Q 1hr WA and pt verbalized understanding. Pt's IS usage is at 500ml. Riggs cath is patent with yellowish urine. Skin is warm and dry to touch. No signs or symptoms of hypoglycemia or hyperglycemia noted. Call light is with pt and bed alarm is on. Pt was instructed to call for assistance as needed and pt verbalized understanding.
[2018-07-22 20:00] VITALS: BP_SYST 123
[2018-07-22] MEDS: PRAMIPEXOLE DI-HCL 0.25 MG TABLET PO SCH (21:41)
[2018-07-22] MEDS: FAMOTIDINE 20 MG TABLET PO SCH (21:41)
--- NOTE | 2018-07-22 21:43 | NUR ---
Accucheck 229 and 4 units Regular Insulin given SQ. Skin remains warm and dry to touch. Pt declined HS snacks.
--- NOTE | 2018-07-23 | NUR ---
Neurovascular checks to RUE and RLE are WNL. Pt is resting without any distress noted. Rt hip dressing is dry and intact. Saline lock is intact in left hand. Call light is with pt and bed alarm is on.
--- NOTE | 2018-07-23 02:00 | NUR ---
Pt is sleeping without any distress noted. Call light is with pt and bed alarm is on.
[2018-07-23 02:20] VITALS: BP_SYST 123
--- NOTE | 2018-07-23 04:00 | NUR ---
Pt is sleeping without any distress and easily arousable. Neurovascular checks to RUE and RLE are WNL. Rt hip dressing is dry and intact. Saline lock is intact in left hand. Call light is with pt and bed alarm is on.
[2018-07-23 05:10] LABS: BASOPHILS % (AUTO) 0.2 % (0.0-2.0); EOSINOPHILS % (AUTO) 0.4 % (0.0-4.0); HEMATOCRIT 22.8 % (36-48); HEMOGLOBIN 7.9 g/dL (12.0-16.0); LYMPHOCYTES # (AUTO) 0.9 K/uL (1.0-5.5); LYMPHOCYTES % (AUTO) 10.9 % (20.5-51.5); MEAN CORPUSCULAR HEMOGLOBIN 31 pg (27-31); MEAN CORPUSCULAR HGB CONC 35 % (32-36); MEAN CORPUSCULAR VOLUME 88 fL (79.0-98.0); MONOCYTES # (AUTO) 0.9 K/uL (0.0-1.0); MONOCYTES % (AUTO) 11.5 % (1.7-9.3); NEUTROPHILS # (AUTO) 6.1 K/uL (1.8-7.7); PLATELET COUNT (AUTO) 106 K/uL (130-430); RED BLOOD CELL COUNT(AUTO) 2.58 MIL/uL (4.2-6.2); RED CELL DISTRIBUTION WIDTH 12.9 % (9.0-15.0); WHITE BLOOD COUNT (AUTO) 7.9 K/uL (4.8-10.8)
--- NOTE | 2018-07-23 06:32 | NUR ---
Pt is awake and resting quietly in bed. All pt's needs were attended to. No fall or injury noted this shift. Will endorse to day shift nurse.
[2018-07-23] MEDS: INSULIN REGULAR, HUMAN 100 UNITS/ML, 10 ML VIAL (novoLIN R) SUBCUT PRN ×4 (06:43→21:56)
--- NOTE | 2018-07-23 06:44 | NUR ---
Blood sugar: 189. Administered 2 units of regular insulin per PRN insulin sliding scale. Notified primary nurse.
[2018-07-23 06:45] LABS: ERYTHROCYTE SEDIMENTATION RATE 63 MM/HR (0-20)
[2018-07-23 06:58] LABS: CALCIUM 7.7 mg/dL (8.4-11.0); CREATININE 0.83 mg/dL (0.55-1.30); POTASSIUM 3.2 mmol/L (3.5-5.1)
[2018-07-23 07:02] LABS: ALBUMIN 1.6 g/dL (3.4-4.8); TOTAL BILIRUBIN 0.9 mg/dL (0.0-1.0)
[2018-07-23 07:21] LABS: C-REACTIVE PROTEIN QUANT 17.1 mg/dL (0-0.5)
--- NOTE | 2018-07-23 08:00 | NUR ---
AM note patient resting in bed, a/o, denies pain, mostly japanese speaking but can understand some Setswana, assessment complete, dressing to right hip has old, dark red blood on it, monitoring for new bleeding or drainage, neurovascular check complete, IV line is patent and infusing well, no s/s of infiltration, educated the patient and her daughter on plan of care and call light system, they verbalized understanding, bed in lowest position, three side rails up, bed alarm on, bed close to nursing station, fall and aspiration precautions in place.
--- NOTE | 2018-07-23 08:00 | NUR ---
Dr. Ramirez rounds changed the dressing to the right hip, patient tolerated well, Dr. Ramirez noted blood still on incision site, ordered for 2 units of PRBC's if okay with Dr. Downey, will follow up.
[2018-07-23] MEDS: metroNIDAZOLE 500 mg/NS 100 ML IV SCH ×2 (08:32→21:51)
[2018-07-23] MEDS: FERROUS SULFATE 325 MG TABLET.DR PO SCH ×2 (08:33→21:51)
[2018-07-23] MEDS: amLODIPine BESYLATE 5 MG TABLET PO SCH (08:33)
[2018-07-23] MEDS: PREGABALIN 25 MG CAPSULE (LYRICA) PO SCH ×3 (08:34→21:51)
[2018-07-23] MEDS: HYDROcodone/ACETAMIN 7.5-325 MG TAB PO PRN (08:34)
[2018-07-23] MEDS: DOCUSATE SODIUM 100 MG CAPSULE PO SCH ×2 (08:34→21:51)
[2018-07-23] MEDS: FUROSEMIDE 20 MG/2 ML VIAL IVP SCH (08:34)
--- NOTE | 2018-07-23 08:35 | NUR ---
Medications patient resting in bed, awake, educated on all medications uses and potential side effects, she verbalized understanding and tolerated well, IV line is patent and infusing well, patient and her daughter refused Lyrica PO for this morning, patient states she is already,"sleepy," educated on medications uses and benefits, they verbalized understanding and still refused, continuing to monitor, bed in lowest position, three side rails up, bed alarm on, bed close to nursing station, call light within reach, fall and aspiration precautions in place.
[2018-07-23 08:44] VITALS: BP_SYST 114
[2018-07-23] MEDS ORDERED: ASPIRIN 325 MG TABLET (ECOTRIN) PO SCH (09:00)
--- NOTE | 2018-07-23 09:08 | NUR ---
Spoke with Dr. Downey to confirm if ok to transfuse 2units of PRBCs (Dr. Ramirez ordered), stated okay also informed MD that patient is complaining of left foot pain 10/10 after pain medication administration, orders received for XRAY.
--- NOTE | 2018-07-23 09:48 | NUR ---
PT NOTE Physical therapy held today due to L ankle pain, awaiting xray results, daughter was present.
[2018-07-23] MEDS ORDERED: POTASSIUM CHLORIDE 40 MEQ, LIDOCAINE JECT 2% PF 100 MG 50 MG in NS 250 ML IV ONE (10:15)
[2018-07-23] MEDS: cefTRIAXone 1 GM in D5W 50 ML IV SCH (10:56)
--- NOTE | 2018-07-23 11:00 | NUR ---
Medication patient resting in bed, awake, states pain is better, educated on IV antibiotic and IV potassium, she verbalized understanding, IV line is patent and infusing well, blood glucose checked, will follow up with insulin coverage, no other needs at this time, bed in lowest position, three side rails up, bed alarm on, bed close to nursing station, call light within reach, fall and aspiration precautions in place. Addendum: 07/23/18 at 1150 by Darnell Gunter RN Insulin coverage provided per MD orders at 1125.
[2018-07-23 12:45] VITALS: BP_SYST 99
[2018-07-23] MEDS ORDERED: PIOGLITAZONE HCL 30 MG TABLET PO ONE (13:45)
--- NOTE | 2018-07-23 13:45 | NUR ---
RN rounds patient resting in bed, eyes closed, breathing is even and unlabored, no signs of distress, continuing to monitor, bed in lowest position, three side rails up, bed alarm on,bed close to nursing station, call light within reach, fall and aspiration precautions in place.
--- NOTE | 2018-07-23 14:02 | NUR ---
Medication patient resting in bed, awake, family at bedside, educated on medication uses and potential side effects, she verbalized understanding and tolerated well, discussed plan of care again with patient's daughter, she verbalized understanding, bed in lowest position, three side rails up, bed alarm on, bed close to nursing station, call light within reach, fall and aspiration precautions in place.
[2018-07-23] MEDS ORDERED: PIOGLITAZONE HCL 15 MG TABLET PO ONE ×2 (14:15→18:15)
--- NOTE | 2018-07-23 14:29 | NUR ---
Nutrition Education Per RN, Dr. Ramirez put in orders for diabetic teaching. RD met w/ pt and daughter this afternoon to provide nutrition education on diabetic and low-sodium nutrition therapy. Please refer to interdisciplinary teaching record for details.
--- NOTE | 2018-07-23 16:30 | NUR ---
BT INITIATION: Consent signed per patient's daughter agreeing to administration of blood. Blood has been type and crossmatched. Blood sent from blood bank. Information on unit of blood checked against patient wristband at bedside by two nurses. All information matches. Patient or responsible constitution party informed of potential complications associated with blood transfusion. Informed of possible transfusion reaction symptoms. Aware of need to notify nurse at once of itching, shortness of breath, flushing, feeling of impending doom, or other symptoms not previously present. Vital signs taken within 5 minutes prior to initiation of transfusion. RN will remain with patient for first 15 minutes of transfusion at which time vital signs will be re-assessed.
[2018-07-23 16:38] VITALS: BP_SYST 120
--- NOTE | 2018-07-23 16:45 | NUR ---
15 minutes after blood transfusion initiation vital signs stable at this time, continuing to monitor patient.
--- NOTE | 2018-07-23 17:41 | NUR ---
IV RE-INSERTION: Complaining of pain to IV site. Restarted on right forearm 20g. Successful after 1 attempts. Resumed blood transfusion. Will observe for any signs of infiltration.
--- NOTE | 2018-07-23 17:52 | NUR ---
Medication patient resting in bed, new IV line is patent and infusing well, no complaints to pain, blood infusing well, blood glucose checked and insulin coverage provided per MD orders, continuing to monitor the patient. Called pharmacy regarding unavailable medication from earlier today, will follow up as needed.
[2018-07-23] MEDS: MILK OF MAGNESIA 30 ML UDC PO PRN (18:03)
[2018-07-23] MEDS: metFORMIN HCL 500 MG TABLET PO SCH (18:03)
--- NOTE | 2018-07-23 18:03 | NUR ---
Medication patient resting in bed, awake, denies pain, educated on new medications uses and potential side effects, she verbalized understanding and tolerated well, continuing to monitor, bed in lowest position, three side rails up, bed alarm on, bed close to nursing station, fall and aspiration precautions in place, call light within reach. Addendum: 07/23/18 at 1816 by Darnell Gunter RN Medication patient resting in bed, awake, denies pain, medication now available from pharmacy, educated on new medications uses and potential side effects, she verbalized understanding and tolerated well, continuing to monitor, bed in lowest position, three side rails up, bed alarm on, bed close to nursing station, fall and aspiration precautions in place, call light within reach.
--- NOTE | 2018-07-23 18:29 | NUR ---
Closing note patient resting in bed, eyes closed, breathing is even and unlabored, no signs of distress, easy to wake, IV line is patent and infusing well, all needs met, will endorse report to NOC shift nurse, bed in lowest position, three side rails up, bed close to nursing station, bed alarm on, call light within reach, fall and aspiration precautions in place.
[2018-07-23 20:00] VITALS: BP_SYST 126
--- NOTE | 2018-07-23 20:00 | NUR ---
Pt was received lying in bed fully awake, alert and oriented x 4. Pt's daughter is visiting at the bedside. IV site in LFA is without any signs of infiltration. RUE and RLE are WNL. Pt is able to wiggle her fingers and toes. Pt was instructed to use IS 10x Q 1hr WA and pt verbalized understanding. Pt's IS usage is at 500ml. Riggs cath is patent with yellowish urine. Skin is warm and dry to touch. No signs or symptoms of hypoglycemia or hyperglycemia noted. Call light is with pt and bed alarm is on. Pt was instructed to call for assistance as needed and pt verbalized understanding. Addendum: 07/23/18 at 5664 by Sarah Jolly RN Right hip dressing is dry and intact.
[2018-07-23] MEDS: FAMOTIDINE 20 MG TABLET PO SCH (21:51)
[2018-07-23] MEDS: PRAMIPEXOLE DI-HCL 0.25 MG TABLET PO SCH (21:52)
--- NOTE | 2018-07-23 21:56 | NUR ---
Accucheck 180 and 2 units Regular Insulin given SQ. Skin remains warm and dry to touch. Pt was offered HS snacks, but pt declined.
[2018-07-23 23:30] VITALS: BP_SYST 125
--- NOTE | 2018-07-23 23:45 | NUR ---
PRBC obtained from Blood Bank and brought to unit. Attempted to start blood transfusion, but pt stated IV site hurts. IV site in RFA noted to be patent and without any signs of infiltration. Charge Nurse also checked IV site and stated it is not infiltrated. Pt insisted IV site hurts and refused blood transfusion to be given through the IV site. Charge nurse attempted to restart another IV line, but pt declined. RN also attempted to restart another IV line, but pt declined. RN called pt's daughter at home to speak with pt regarding 2nd unit PBRC transfusion. Pt's daughter spoke with pt, but pt declined blood transfusion. Pt told her daughter she does not want additional blood transfusion or IV restart because she does not like how her hands look edematous. Pt's daughter recommended returning the blood to Blood Bank since pt does not want the transfusion. RN notified charge nurse and Traffic Sign Supervisor. PRBC was returned to Blood Bank at 0025. Addendum: 07/24/18 at 0356 by Sarah Jolly RN stewarding supervisor stated attending MD can be notified of blood transfusion refusal in AM.
--- NOTE | 2018-07-24 00:40 | NUR ---
Pt noted to be nauseated and was given a wash basin per her request. No emesis noted. Pt was offered ordered PRN IV Zofran, but pt declined. Pt stated, "No medicine."
--- NOTE | 2018-07-24 02:00 | NUR ---
Pt is sleeping without any distress noted. Call light is with pt and bed alarm is on.
--- NOTE | 2018-07-24 04:00 | NUR ---
Pt is sleeping without any respiratory distress noted. Saline lock is intact in RFA. Fall and safety precautions are in place.
[2018-07-24] MEDS: INSULIN REGULAR, HUMAN 100 UNITS/ML, 10 ML VIAL (novoLIN R) SUBCUT PRN ×2 (06:22→12:23)
[2018-07-24 06:30] LABS: BASOPHILS % (AUTO) 0.4 % (0.0-2.0); EOSINOPHILS # (AUTO) 0.1 K/uL (0.0-0.4); EOSINOPHILS % (AUTO) 0.8 % (0.0-4.0); HEMATOCRIT 29.4 % (36-48); LYMPHOCYTES # (AUTO) 0.7 K/uL (1.0-5.5); LYMPHOCYTES % (AUTO) 8.8 % (20.5-51.5); MEAN CORPUSCULAR HEMOGLOBIN 30 pg (27-31); MEAN CORPUSCULAR HGB CONC 34 % (32-36); MEAN CORPUSCULAR VOLUME 87 fL (79.0-98.0); MONOCYTES # (AUTO) 0.6 K/uL (0.0-1.0); MONOCYTES % (AUTO) 7.3 % (1.7-9.3); NEUTROPHILS # (AUTO) 6.6 K/uL (1.8-7.7); NEUTROPHILS % (AUTO) 82.7 % (40.0-70.0); PLATELET COUNT (AUTO) 134 K/uL (130-430); RED BLOOD CELL COUNT(AUTO) 3.36 MIL/uL (4.2-6.2); RED CELL DISTRIBUTION WIDTH 14.1 % (9.0-15.0); WHITE BLOOD COUNT (AUTO) 7.9 K/uL (4.8-10.8)
--- NOTE | 2018-07-24 06:30 | NUR ---
Pt is awake and resting quietly in bed. All pt's needs were attended to. No fall or injury noted this shift. Lt hip dressing is dry and intact. Will endorse to day shift nurse.
[2018-07-24 06:40] LABS: CALCIUM 7.6 mg/dL (8.4-11.0); CREATININE 0.67 mg/dL (0.55-1.30); POTASSIUM 3.9 mmol/L (3.5-5.1)
[2018-07-24 07:45] VITALS: BP_SYST 146
--- NOTE | 2018-07-24 07:45 | NUR ---
INITIAL ROUNDS Received pt AAOx4, mostly Mandarin speaking-pt's daughter Pratima at bedside. No s/s resp distress, no c/o pain or discomfort. BLE with SCDs in place, noted dressing to right hip with ecchymosis noted below dressing, noted large band aid to lateral right knee. Neurovascular checks completed and intact. Plan of care for the day reviewed with pt's daughter Pratima-she verbalized her understanding. Pain management, skin and safety discussed-teach back done. Aspiration and safety precautions in place. Call light within reach.
[2018-07-24] MEDS: FUROSEMIDE 20 MG/2 ML VIAL IVP SCH (08:51)
[2018-07-24] MEDS: FERROUS SULFATE 325 MG TABLET.DR PO SCH (08:51)
[2018-07-24] MEDS: metroNIDAZOLE 500 mg/NS 100 ML IV SCH (08:51)
[2018-07-24] MEDS: DOCUSATE SODIUM 100 MG CAPSULE PO SCH (08:51)
[2018-07-24] MEDS: MILK OF MAGNESIA 30 ML UDC PO PRN (08:51)
[2018-07-24] MEDS: PREGABALIN 25 MG CAPSULE (LYRICA) PO SCH (08:52)
[2018-07-24] MEDS: amLODIPine BESYLATE 5 MG TABLET PO SCH (08:52)
[2018-07-24] MEDS: HYDROcodone/ACETAMIN 7.5-325 MG TAB PO PRN (08:58)
[2018-07-24] MEDS: metFORMIN HCL 500 MG TABLET PO SCH (08:59)
[2018-07-24] MEDS ORDERED: ASPIRIN 81 MG TABLET(ECOTRIN) PO SCH (09:00)
[2018-07-24] MEDS ORDERED: PIOGLITAZONE HCL 15 MG TABLET PO SCH (09:00)
--- NOTE | 2018-07-24 10:20 | NUR ---
ROUNDS Pt sitting up in bedside chair-assisted there by physical therapy-max assist per P.T. Pt's daughter at bedside and was upset about the attempts to place an IV for blood transfusion yesterday-stated "next time only experienced nurse" per pt. Noted pt's Hgb 10.0 today, Dr. Hartmann aware and no further need for transfusion at this time. No s/s rep distress, no c/o pain or discomfort. Call light within reach.
[2018-07-24 12:00] VITALS: BP_SYST 125
--- NOTE | 2018-07-24 12:11 | NUR ---
ROUNDS Pt just assisted back into bed by physical therapy, no further c/o pain or discomfort. Pt with no s/s resp distress. Pt's daughter at bedside. Call light within reach.
[2018-07-24] MEDS ORDERED: Ferrous Sulfate PO (12:20)
[2018-07-24] MEDS ORDERED: GLU500 PO (12:20)
[2018-07-24] MEDS ORDERED: PIOG15TA8 PO (12:20)
[2018-07-24] MEDS ORDERED: ASPI-1153 PO (12:20)
[2018-07-24] MEDS: cefTRIAXone 1 GM in D5W 50 ML IV SCH (13:28)
--- NOTE | 2018-07-24 13:46 | NUR ---
GINGER/ Rounded with Dr. Ramirez-he changed pt's dressing to incision site. Foam dressing placed over blister on pt's right lateral hip per MD request. Noted callus to left lateral foot, dry foam dressing placed for comfort. Pt tolerated well. Call light within reach.
--- NOTE | 2018-07-24 14:15 | NUR ---
Dietitian Recommendations * Recommend CCHO, cardiac diet w/ Glucerna BID (ONS provides an additional 440 kcal/day and 20 gm protein/day) Please refer to Nutrition Assessment for details. Addendum: 07/24/18 at [address] CORRECTION: Dietitian Recommendations * Recommend CCHO, cardiac diet w/ Glucerna BID, Ian BID (ONS provides an additional 620 kcal/day and 25 gm protein/day) Please refer to Nutrition Assessment for details.
--- NOTE | 2018-07-24 14:20 | NUR ---
Discharge Planning: Jona Patel (f [phone] p [phone]) [facility] [address], [place] ) 4:00pm P/U. Nurse aware and patient packet taken to nurse station.
[2018-07-24 15:13] VITALS: BP_SYST 125
--- NOTE | 2018-07-24 15:45 | NUR ---
REPORT CALLED Report called to Betzaida LEI at [facility]. Informed her that the doctor is aware of no BM since 07/19/18-had MOM and Colace today.
--- NOTE | 2018-07-24 16:05 | NUR ---
OBED DC/D Obed D/C'd as ordered. pt's daughter educated on importance of voiding within 6 hours. Addendum: 07/24/18 at 1650 by Taty Thrasher RN Betzaida Tenorio aware of possible Riggs dc'd.
--- NOTE | 2018-07-24 16:15 | NUR ---
PT TRANSFERRED Report given to Betzaida Weinstein at [facility]. Transfer packet with Transfer Orders and Medication Reconciliation form given to EMT Angel with report. Exitcare on ORIF Hip and Pneumonia explained & provided. [facility] ID band removed, replaced with ID band with pt's name and . IV catheter removed, intact and dressing applied, no active bleeding. All belongings sent with patient. Patient left floor via gurney escorted by EMT in no distress.
[2018-07-24 16:26] VITALS: BP_SYST 123
== END 2018-07-24 16:15 | DRG 480 ==
LOC: SED 08:22 → STU 09:49 → SMU 07-21 13:52 → UNDODISIN 07-23 16:15
PROVIDERS: ADMIT Preventive Medicine Preventive Medicine/Occupational Environmental Medicine; ATTEND Preventive Medicine Preventive Medicine/Occupational Environmental Medicine
PROC: 0QS636Z Reposition Right Upper Femur with Intramedullary Internal Fixation Device, Percutaneous Approach (ICD-10-PCS; principal; 2018-07-20 07:30)
PROC: 30233N1 Transfusion of Nonautologous Red Blood Cells into Peripheral Vein, Percutaneous Approach (ICD-10-PCS; 2018-07-21)
DX: S72.21XA Displaced subtrochanteric fracture of right femur, initial encounter for closed fracture (principal); J18.9 Pneumonia, unspecified organism; E43 Unspecified severe protein-calorie malnutrition; E87.1 Hypo-osmolality and hyponatremia; J47.0 Bronchiectasis with acute lower respiratory infection; J90 Pleural effusion, not elsewhere classified; N39.0 Urinary tract infection, site not specified; D50.0 Iron deficiency anemia secondary to blood loss (chronic); D69.6 Thrombocytopenia, unspecified; E78.5 Hyperlipidemia, unspecified; E87.6 Hypokalemia; E83.52 Hypercalcemia; I11.9 Hypertensive heart disease without heart failure; I25.10 Atherosclerotic heart disease of native coronary artery without angina pectoris; I65.29 Occlusion and stenosis of unspecified carotid artery; J32.0 Chronic maxillary sinusitis; W18.30XA Fall on same level, unspecified, initial encounter; R26.9 Unspecified abnormalities of gait and mobility; R74.0 Nonspecific elevation of levels of transaminase and lactic acid dehydrogenase [LDH]; E11.65 Type 2 diabetes mellitus with hyperglycemia; Z86.73 Personal history of transient ischemic attack (TIA), and cerebral infarction without residual deficits; Z90.49 Acquired absence of other specified parts of digestive tract; Z68.24 Body mass index [BMI] 24.0-24.9, adult; Y93.89 Activity, other specified; Y92.098 Other place in other non-institutional residence as the place of occurrence of the external cause; Y99.8 Other external cause status
CPT/HCPCS: 36415; 70450-TC; 71045; 71250-TC; 72192-TC; 73552; 76001; 80048; 80053; 81000-TC; 82962; 83735-TC; 83880; 84100-TC; 84484; 85025; 85610-TC; 85651-TC; 85730-TC; 86140; 86886; 86900; 86901; 86920; 87081; 93005; 93306; 93880; 94760; 96372; 96374; 96375; 97110-GP; 97530-GP; 99285; C1713; C1769; G0378; J0456; J0690; J0696; J1650; J1815; J1940; J2250; J2270; J2405; J2704; J3010; J3480; J3490; J7030; J7050; J7060; J7120; P9021